=== PATIENT | female | born 1985 | race African-American/Black ===

== ENCOUNTER 2017-01-01 11:00 | Emergency (ER) | payer OTHER ==
[~2017-01-01] VITALS: Ht 154.9 cm; Wt 80.0 kg
[~2017-01-01 11:00] MED LIST: ANTISOL30 EACH EAR
[2017-01-01 11:02] VITALS: BP 137/77; PULSE 91; RESP 18; TEMP 98.1; O2SAT 98
--- NOTE | 2017-01-01 11:56 | PD ---
HPI Chief Complaint: Pain: Acute or Chronic Time Seen by Provider: 11:56 Travel History International Travel<30 days: No Contact w/Intl Traveler<30days: No Traveled to known affect area: No History of Present Illness HPI 31-year-old female with no significant medical history presents to the emergency department for evaluation a right hip pain radiating into her thigh. Agent states that she went to step off of a golf cart at work and misstepped. She felt a pop in her hip. Did not fall. Has been ambulatory since the incident. Pain is a 6 out of 10. Patient has no previous injury. No recent illnesses, fever, chills. No other symptoms to report. PFSH Past Medical History Medical History: Denies Significant Hx ?: Not LMP: 12/08/16 Social History Alcohol Use: No Tobacco Use: Yes Allergies-Medications (Allergen,Severity, Reaction): Coded Allergies: No Known Allergies (Unverified , 01/01/17) Reported Meds & Prescriptions Reported Meds & Active Scripts Active Naprosyn (Naproxen) 500 Mg Tab 500 Mg PO BID PRN Antipyrine/Benzocaine Otic (Benzocaine/Antipyrine) 10 Ml Soln 4 Drop EACH EAR Q4 PRN Review of Systems Except as stated in HPI: all other systems reviewed are Neg Physical Exam Narrative GENERAL: Well-nourished female patient, ambulatory with a slight limp, favoring the right side, in no acute distress SKIN: Warm and dry. HEAD: Atraumatic. Normocephalic. EYES: Pupils equal and round. No scleral icterus. No injection or drainage. ENT: No nasal bleeding or discharge. Mucous membranes pink and moist. NECK: Trachea midline. No JVD. CARDIOVASCULAR: Regular rate and rhythm. No murmur appreciated. RESPIRATORY: No accessory muscle use. Clear to auscultation. Breath sounds equal bilaterally. GASTROINTESTINAL: Abdomen soft, non-tender, nondistended. Hepatic and splenic margins not palpable. MUSCULOSKELETAL: No obvious deformities. No clubbing. No cyanosis. No edema. Equal strength bilateral lower extremity. Sensation intact distal extremity. NEUROLOGICAL: Awake and alert. No obvious cranial nerve deficits. Motor grossly within normal limits. Normal speech. PSYCHIATRIC: Appropriate mood and affect; insight and judgment normal. Data Data Last Documented VS Vital Signs Date Time Temp Pulse Resp B/P Pulse Ox O2 Delivery O2 Flow Rate FiO2 3/14/17 11:02 98.1 91 18 137/77 98 Orders Hip, Uni(Ap&Lat) W Ap Pelvis (01/01/17 ) Ketorolac Inj (Toradol Inj) (01/01/17 12:15) Orphenadrine Inj (Norflex Inj) (01/01/17 12:15) MDM Medical Decision Making Medical Screen Exam Complete: Yes Emergency Medical Condition: Yes Medical Record Reviewed: Yes Differential Diagnosis Sciatica versus hip strain versus sprain versus low back pain Narrative Course 31-year-old female presents to the emergency department for evaluation right hip pain. X-ray imaging of the right hip and pelvis is negative. Patient is provided pain control. Discharged home to follow-up the workman's comp provider. She agrees to return immediately with any acute worsening symptoms. Diagnosis Primary Impression: Right hip pain Additional Impression: Sciatic leg pain Referrals: Primary Care Physician Patient Instructions: General Instructions, Sciatica (ED) Departure Forms: Tests/Procedures, Work Release Enter return to work date: Jan 03, 2017 Additional Instructions: Ice and/or warm ice may help to alleviate symptoms Follow-up with a primary care provider Return immediately with any acute worsening of symptoms Med/Other Pt SpecificInfo: Prescription(s) given Scripts Naproxen (Naprosyn)500 Mg [id number] Mg PO BID PRN (PAIN SCALE 1 TO 10) #30 TAB Ref 0 Prov:Thu Braxton 01/01/17 Disposition: 01 DISCHARGE HOME Condition: Stable Thu Braxton Jan 01, 2017 11:56
[2017-01-01] MEDS ORDERED: KETOROLAC TROMETHAMINE 60 MG/2 ML (IM) VIAL IM ONE (12:15)
[2017-01-01] MEDS ORDERED: ORPHENADRINE INJ 60 MG/2 ML AMP IM ONE (12:15)
--- NOTE | 2017-01-01 12:47 | RADRPT ---
EXAM DATE/TIME: 01/01/2017 12:32 [facility] COMPARISON: No previous studies available for comparison. INDICATIONS : Right hip pain. Stepped down and felt pop and grinding in hip joint. MEDICAL HISTORY : None. SURGICAL HISTORY : None. ENCOUNTER: Initial ACUITY: 1 day PAIN SCORE: 9/10 LOCATION: Right hip FINDINGS: Examination of the right hip was performed with AP Pelvis. The primary and secondary trabecular yong francisca of the femoral neck is intact. The hip joint is of normal width without significant sclerosis or bony hypertrophy. The acetabulum is grossly intact. CONCLUSION: Unremarkable examination of the right hip. Markus Ladd MD on January 01, 2017 at 12:45 Board Certified Radiologist. This report was verified electronically.
[2017-01-01] MEDS ORDERED: NAPR500 PO (12:56)
== END 2017-01-01 13:40 | disposition home or self-care (01) ==
LOC: NEPB 11:00
DX: M25.551 Pain in right hip (principal); M54.31 Sciatica, right side; V86.49XA Person injured while boarding or alighting from other special all-terrain or other off-road motor vehicle, initial encounter; Y93.I9 Activity, other involving external motion; Y99.0 Civilian activity done for income or pay
CPT/HCPCS: 73502; 96372; 99283; J1885; J2360